=== PATIENT | female | born 1985 | race American Indian/Alaskan Native ===

== ENCOUNTER 2022-04-22 11:40 | Emergency (ER) | payer BC ==
[2022-04-22 13:41] LABS: Hemoglobin 11.7 gm/dl (10.1-14.3); Mean Corpuscular HGB Conc 33 % (30-34); Mean Corpuscular Volume 76 fl (79-97); Platelet Count 333 K/mm3 (140-440); Red Blood Count 4.72 M/mm3 (3.65-5.03); Red Cell Distribution Width 16.8 % (13.2-15.2)
[2022-04-22 14:02] LABS: Alanine Aminotransferase 11 units/L (7-56); Albumin 4.1 g/dL (3.9-5); BUN/Creatinine Ratio 14; Blood Urea Nitrogen 13 mg/dL (7-17); Calcium 9.3 mg/dL (8.4-10.2); Hemolysis Index 0
--- NOTE | 2022-04-22 14:05 | Cat Scan Report ---
CT HEAD WITHOUT CONTRAST INDICATION / CLINICAL INFORMATION: syncope. TECHNIQUE: All CT scans at this location are performed using CT dose reduction for ALARA by means of automated exposure control. COMPARISON: None available. FINDINGS: HEMORRHAGE: None. EXTRA-AXIAL SPACES: Normal in size and morphology for the patient's age. VENTRICULAR SYSTEM: Normal in size and morphology for the patient's age. CEREBRAL PARENCHYMA: No significant abnormality. No acute territorial infarct. MIDLINE SHIFT / HERNIATION: None. CEREBELLUM / BRAINSTEM: No significant abnormality. ORBITS: Normal as visualized. SOFT TISSUES: No significant abnormality. SKULL: No significant abnormality. PARANASAL SINUSES / MASTOID AIR CELLS: Normal as visualized. ADDITIONAL FINDINGS: None. IMPRESSION: 1. No acute intracranial abnormality. Signer Name: Elvis Chen MD Signed: 04/22/2022 2:01 PM Workstation Name: [id number]
--- NOTE | 2022-04-22 14:34 | Emergency Department Report ---
ED Syncope HPI - General Chief Complaint: Weakness Stated Complaint: PASSED OUT Time Seen by Provider: 04/22/22 12:48 - Related Data Allergies/Adverse Reactions: Allergies Penicillins Allergy (Verified 04/22/22 11:53) Hives ED Review of Systems ROS: Stated complaint: PASSED OUT Other details as noted in HPI ED Past Medical Hx - Past Medical History Previous Medical History?: No - Surgical History Additional Surgical History: BACK - Social History Smoking Status: Current Some Day Smoker Substance Use Type: None ED Physical Exam - General Limitations: No Limitations ED Course Vital Signs 04/22/22 04/22/22 11:57 14:06 Temperature 98.0 F 97.8 F Pulse Rate 84 77 Respiratory 20 18 Rate Blood Pressure 117/65 107/57 Blood Pressure 107/57 [Right] O2 Sat by Pulse 100 97 Oximetry ED Medical Decision Making - Lab Data Result diagrams: 04/22/22 13:05 04/22/22 13:05 Critical care attestation.: If time is entered above; I have spent that time in minutes in the direct care of this critically ill patient, excluding procedure time. ED Disposition Clinical Impression: Syncope Qualifiers: Syncope type: unspecified Qualified Code(s): R55 - Syncope and collapse Disposition: 01 HOME / SELF CARE / HOMELESS Is pt being admited?: No Does the pt Need Aspirin: No Condition: Stable Instructions: Syncope (ED), Syncope, [id number] Additional Instructions: Follow up with your primary care provider for further evaluation and management. Return to ED as needed. Referrals: ARAM CALLEJAS MD [Staff Physician] - 3-5 Days Forms: Work/School Release Form(ED) Time of Disposition: 14:34
[2022-04-22 14:57] VITALS: BP 108/76
--- NOTE | 2022-04-23 10:23 | Electrocardiograph Report ---
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
== END 2022-04-22 14:56 | disposition home or self-care (01) ==
LOC: ED 11:40
DX: R55 Syncope and collapse (principal); F17.200 Nicotine dependence, unspecified, uncomplicated; Z88.0 Allergy status to penicillin
CPT/HCPCS: 36415; 70450; 80053; 84484; 85027; 93005; 99283; 99284